=== PATIENT | male | born 2000 | race Caucasian/White ===

== ENCOUNTER 2023-11-20 16:55 | Emergency (ER) | payer OTHER ==
[~2023-11-20] VITALS: Ht 177.8 cm; Wt 98.2 kg
[2023-11-20] MEDS: LIDOCAINE 1% MDV 20ML VIAL IM ONE (19:22)
[2023-11-20] MEDS ORDERED: CEPH500C PO (20:24)
[2023-11-20] MEDS: CEPHALEXIN 500 MG CAP PO ONE (20:29)
[2023-11-20 20:30] VITALS: BP 128/64; TEMP 98.1; O2SAT 98
== END 2023-11-20 20:53 | disposition home or self-care (01) ==
LOC: M ED 16:55
DX: S91.311A Laceration without foreign body, right foot, initial encounter (principal); Y92.830 Public park as the place of occurrence of the external cause; Y93.9 Activity, unspecified; Y99.9 Unspecified external cause status; F10.10 Alcohol abuse, uncomplicated; Z79.2 Long term (current) use of antibiotics